=== PATIENT | female | born 1955 | race Caucasian/White ===

== ENCOUNTER 2022-04-16 05:54 | Day surgery (SDC) | payer MEDICARE, OTHER ==
[~2022-04-16] VITALS: Ht 175.3 cm; Wt 78.0 kg
[2022-04-16] VITALS (13 sets, daily range): BP systolic 121–166; BP diastolic 41–99
[2022-04-16] MEDS ORDERED: METO50TA16 PO (06:30)
[2022-04-16] MEDS ORDERED: COLE625T13 PO (06:30)
[2022-04-16] MEDS ORDERED: METF-1203 PO (06:30)
[2022-04-16] MEDS ORDERED: ATOR40TA72 PO (06:30)
[2022-04-16] MEDS ORDERED: normal saline 1,000 ML IV SCH (06:35)
[2022-04-16] MEDS ORDERED: diphenhydrAMINE 25mg capsule PO PRN (06:35)
[2022-04-16] MEDS ORDERED: sodium bicarbonate (8.4%) inj. 150 ML in dextrose 5%-water 1,000 ML IV ONE (06:35)
[2022-04-16] MEDS ORDERED: ASPIRIN PO (06:47)
[2022-04-16] MEDS ORDERED: IRON (06:47)
[2022-04-16] MEDS ORDERED: VITAMIN K (06:47)
[2022-04-16] MEDS ORDERED: FLAX (06:47)
[2022-04-16] MEDS ORDERED: CHOL100046 PO (06:47)
[2022-04-16] MEDS ORDERED: COD LIVER OIL (06:47)
[2022-04-16] MEDS ORDERED: CINN500C15 PO (06:47)
[2022-04-16 07:25] LABS: BASOPHILS % (AUTO) 0.3 % (0-1); EOSINOPHILS # (AUTO) 0.3 X10'3 (0-0.9); EOSINOPHILS % (AUTO) 5.4 % (0-6); HEMATOCRIT 34.9 % (35.0-45.0); HEMOGLOBIN 12.1 g/dl (12.0-16.0); LYMPHOCYTES # (AUTO) 1.5 X10'3 (1.1-4.8); LYMPHOCYTES % (AUTO) 24.7 % (21-51); MEAN CORPUSCULAR HEMOGLOBIN 28.9 PG (27.0-31.0); MEAN CORPUSCULAR HGB CONC 34.6 g/dL (33.0-36.5); MEAN CORPUSCULAR VOLUME 83.5 FL (78-98); MEAN PLATELET VOLUME 8.8 FL (7.4-10.4); MONOCYTES # (AUTO) 0.5 X10'3 (0-0.9); MONOCYTES % (AUTO) 8.1 % (2-12); NEUTROPHILS # (AUTO) 3.7 X10'3 (1.8-7.7); NEUTROPHILS % (AUTO) 61.5 % (42-75); PLATELET COUNT 157 X10'3 (140-440); RED BLOOD COUNT 4.18 X10'6 (4.20-5.60); RED CELL DISTRIBUTION WIDTH 13.4 % (11.5-14.5); WHITE BLOOD COUNT 5.9 X10'3 (4.5-11.0)
[2022-04-16] MEDS ORDERED: fentaNYL/PF 50MCG/1 ML 2ML syringe ONE (07:30)
[2022-04-16] MEDS ORDERED: midazolam 1 mg/ML 2ml injection ONE ×2 (07:30→07:54)
[2022-04-16] MEDS ORDERED: heparin 1,000unit/ml 10ml vial 10 ML ONE (07:31)
[2022-04-16] MEDS ORDERED: iohexol 350MG/ML 100ml bottle IV ONE ×2 (07:31→08:04)
[2022-04-16] MEDS ORDERED: LIDOcaine 1% 30ml preserv. free vial ONE (07:31)
[2022-04-16 07:35] LABS: ALBUMIN 3.7 G/DL (3.4-5.0); ANION GAP 13 (8-16); BLOOD UREA NITROGEN 10 MG/DL (7-18); BUN/CREATININE RATIO 12.8 (6.6-38.0); CALCIUM 8.3 MG/DL (8.5-10.1); CHLORIDE 103 MMOL/L (99-107); CREATININE 0.78 MG/DL (0.40-0.90); GLUCOSE 345 MG/DL (70-104); MAGNESIUM 1.2 MG/DL (1.5-2.4); POTASSIUM 4.2 MMOL/L (3.5-5.1); SODIUM 138 MMOL/L (135-145); TOTAL CARBON DIOXIDE 22.5 MMOL/L (24-32); eGFR 74 ML/MIN
[2022-04-16] MEDS ORDERED: normal saline 1000ml 1,000 ML IV SCH (08:45)
[2022-04-16] MEDS ORDERED: ondansetron/PF 4mg/2ml inj IV PRN (08:45)
[2022-04-16] MEDS ORDERED: ACETYLCYSTEINE 200 MG/1 ML 4 ML ORAL SOLUTION PO SCH (20:00)
== END 2022-04-16 12:30 | disposition home or self-care (01) ==
LOC: SSTAY O 05:54
PROVIDERS: ATTEND Internal Medicine Cardiovascular Disease
DX: R94.39 Abnormal result of other cardiovascular function study (principal); I25.118 Atherosclerotic heart disease of native coronary artery with other forms of angina pectoris; I10 Essential (primary) hypertension; E78.00 Pure hypercholesterolemia, unspecified; E11.9 Type 2 diabetes mellitus without complications; Z98.890 Other specified postprocedural states; Z82.49 Family history of ischemic heart disease and other diseases of the circulatory system; Z79.84 Long term (current) use of oral hypoglycemic drugs; Z79.82 Long term (current) use of aspirin; Z79.899 Other long term (current) drug therapy
CPT/HCPCS: 36415; 80048; 82948; 83735; 85025; 85610; 93005; 93459; 99152; 99153; C1760; C1769; C1894; J1644; J2250; J3010; J3490; J7030; Q0163; Q9967; A6258

== ENCOUNTER 2022-06-06 06:42 | Day surgery (SDC) | payer MEDICARE, OTHER ==
[~2022-06-06] VITALS: Ht 175.3 cm; Wt 77.6 kg
[2022-06-06] VITALS (9 sets, daily range): BP systolic 146–176; BP diastolic 69–89
[~2022-06-06 06:42] MED LIST: ASPIRIN PO; ATOR40TA72 PO; CHOL100046 PO; CINN500C15 PO; COD LIVER OIL; COLE625T13 PO; FLAX; IRON; METF-1203 PO; METO50TA16 PO; VITAMIN K
[2022-06-06] MEDS ORDERED: diphenhydrAMINE 25mg capsule PO PRN (07:05)
[2022-06-06] MEDS ORDERED: normal saline 1,000 ML IV SCH (07:05)
[2022-06-06 07:44] LABS: BASOPHILS % (AUTO) 0.3 % (0-1); EOSINOPHILS # (AUTO) 0.2 X10'3 (0-0.9); EOSINOPHILS % (AUTO) 3.9 % (0-6); HEMATOCRIT 34.6 % (35.0-45.0); HEMOGLOBIN 11.9 g/dl (12.0-16.0); LYMPHOCYTES # (AUTO) 1.7 X10'3 (1.1-4.8); LYMPHOCYTES % (AUTO) 35.4 % (21-51); MEAN CORPUSCULAR HEMOGLOBIN 28.7 PG (27.0-31.0); MEAN CORPUSCULAR HGB CONC 34.4 g/dL (33.0-36.5); MEAN CORPUSCULAR VOLUME 83.6 FL (78-98); MEAN PLATELET VOLUME 8.7 FL (7.4-10.4); MONOCYTES # (AUTO) 0.5 X10'3 (0-0.9); MONOCYTES % (AUTO) 9.6 % (2-12); NEUTROPHILS # (AUTO) 2.4 X10'3 (1.8-7.7); NEUTROPHILS % (AUTO) 50.8 % (42-75); PLATELET COUNT 174 X10'3 (140-440); RED BLOOD COUNT 4.14 X10'6 (4.20-5.60); RED CELL DISTRIBUTION WIDTH 13.6 % (11.5-14.5); WHITE BLOOD COUNT 4.7 X10'3 (4.5-11.0)
[2022-06-06] MEDS ORDERED: ISOS30TA84 PO (07:50)
[2022-06-06] MEDS ORDERED: MULT-227 PO (07:50)
[2022-06-06 07:53] LABS: ALBUMIN 4.2 G/DL (3.4-5.0); ANION GAP 11 (8-16); BLOOD UREA NITROGEN 11 MG/DL (7-18); BUN/CREATININE RATIO 14.5 (6.6-38.0); CHLORIDE 103 MMOL/L (99-107); CREATININE 0.76 MG/DL (0.40-0.90); GLUCOSE 340 MG/DL (70-104); SODIUM 137 MMOL/L (135-145); TOTAL CARBON DIOXIDE 22.6 MMOL/L (24-32); eGFR 76 ML/MIN
[2022-06-06 07:57] LABS: APTT 27 SECONDS (22-32)
[2022-06-06] MEDS ORDERED: fentaNYL/PF 50MCG/1 ML 2ML syringe ONE ×2 (08:54→09:45)
[2022-06-06] MEDS ORDERED: LIDOcaine 1% 30ml preserv. free vial ONE (08:54)
[2022-06-06] MEDS ORDERED: midazolam 1 mg/ML 2ml injection ONE ×3 (08:54→10:14)
[2022-06-06] MEDS ORDERED: iohexol 350MG/ML 100ml bottle IV ONE (08:55)
[2022-06-06] MEDS ORDERED: heparin 1,000unit/ml 10ml vial 10 ML ONE (08:55)
[2022-06-06] MEDS ORDERED: proCHLORperazine 10 MG/2 ml inj ONE (09:03)
[2022-06-06 09:06] LABS: MAGNESIUM 1.5 MG/DL (1.5-2.4)
[2022-06-06] MEDS ORDERED: clopidogrel 300mg tablet ONE ×2 (10:14→10:48)
[2022-06-06] MEDS ORDERED: normal saline 1000ml 1,000 ML IV SCH (11:40)
[2022-06-06] MEDS ORDERED: HYDROcodone/acetaminophen 5mg/325mg tablet PO PRN (11:40)
[2022-06-06] MEDS ORDERED: ondansetron/PF 4mg/2ml inj IV PRN (11:40)
[2022-06-06] MEDS ORDERED: OXAZEpam 15mg capsule PO PRN (11:40)
[2022-06-06] MEDS ORDERED: HYDROcodone/acetaminophen 10/325mg tab PO PRN (11:40)
[2022-06-06] MEDS ORDERED: proCHLORperazine 10 MG/2 ml inj IV PRN (11:45)
== END 2022-06-06 14:30 | disposition home or self-care (01) ==
LOC: SSTAY O 06:42
PROVIDERS: ATTEND Internal Medicine Cardiovascular Disease
DX: I70.211 Atherosclerosis of native arteries of extremities with intermittent claudication, right leg (principal); Z79.01 Long term (current) use of anticoagulants; Z79.899 Other long term (current) drug therapy; I25.10 Atherosclerotic heart disease of native coronary artery without angina pectoris; E11.9 Type 2 diabetes mellitus without complications; Z98.890 Other specified postprocedural states; I10 Essential (primary) hypertension; E78.00 Pure hypercholesterolemia, unspecified; Z95.5 Presence of coronary angioplasty implant and graft; Z82.49 Family history of ischemic heart disease and other diseases of the circulatory system; Z72.89 Other problems related to lifestyle
CPT/HCPCS: 36415; 37226; 80048; 83735; 85025; 85610; 85730; 93005; 99152; 99153; C1725; C1760; C1769; C1876; C1894; C2623; J0780; J1644; J2250; J3010; J3490; J7030; Q0163; Q9967; A4620; A6258; A6402

== ENCOUNTER 2023-11-02 07:52 | Day surgery (SDC) | payer MEDICARE, OTHER ==
[2023-11-02] VITALS (10 sets, daily range): BP systolic 136–155; BP diastolic 65–86; PULSE 78–94; RESP 14–20; TEMP 98.2; O2SAT 93–97
[~2023-11-02] VITALS: Ht 175.3 cm; Wt 75.8 kg
[~2023-11-02 07:52] MED LIST changes: +ISOS30TA84 PO; +MULT-227 PO
[2023-11-02] MEDS ORDERED: diphenhydrAMINE 25mg capsule PO PRN (08:15)
[2023-11-02] MEDS ORDERED: sodium bicarbonate 1meq/ml syr 150 ML in dextrose 5%-water 1,000 ML IV SCH (08:15)
[2023-11-02] MEDS ORDERED: normal saline 1,000 ML IV SCH (08:15)
[2023-11-02] MEDS ORDERED: METO50TA16 PO (08:58)
[2023-11-02] MEDS ORDERED: ROSU20TA73 PO (08:58)
[2023-11-02] MEDS ORDERED: ASPI-1071 PO (08:58)
[2023-11-02] MEDS ORDERED: DAPA10TA PO (09:00)
[2023-11-02] MEDS ORDERED: CLOP75TA34 PO (09:03)
[2023-11-02] MEDS ORDERED: GEMF600T90 PO (09:03)
[2023-11-02] MEDS ORDERED: OMEP20TA23 PO (09:05)
[2023-11-02 09:24] LABS: BASOPHILS % (AUTO) 0.4 % (0-1); EOSINOPHILS # (AUTO) 0.9 X10'3 (0-0.9); EOSINOPHILS % (AUTO) 11.6 % (0-6); HEMATOCRIT 41.1 % (35.0-45.0); HEMOGLOBIN 14.2 g/dl (12.0-16.0); LYMPHOCYTES # (AUTO) 2.3 X10'3 (1.1-4.8); LYMPHOCYTES % (AUTO) 28.9 % (21-51); MEAN CORPUSCULAR HEMOGLOBIN 28.2 PG (27.0-31.0); MEAN CORPUSCULAR HGB CONC 34.5 g/dL (33.0-36.5); MEAN CORPUSCULAR VOLUME 81.7 FL (78-98); MEAN PLATELET VOLUME 8.7 FL (7.4-10.4); MONOCYTES # (AUTO) 0.6 X10'3 (0-0.9); MONOCYTES % (AUTO) 7.6 % (2-12); NEUTROPHILS # (AUTO) 4.1 X10'3 (1.8-7.7); NEUTROPHILS % (AUTO) 51.5 % (42-75); PLATELET COUNT 171 X10'3 (140-440); RED BLOOD COUNT 5.02 X10'6 (4.20-5.60); RED CELL DISTRIBUTION WIDTH 14.6 % (11.5-14.5)
[2023-11-02 09:32] LABS: ALBUMIN 3.8 G/DL (3.4-5.0); ANION GAP 12 (8-16); BLOOD UREA NITROGEN 9 MG/DL (7-18); CALCIUM 7.7 MG/DL (8.5-10.1); CHLORIDE 100 MMOL/L (99-107); CREATININE 0.69 MG/DL (0.40-0.90); GLUCOSE 267 MG/DL (70-104); MAGNESIUM 1.8 MG/DL (1.5-2.4); POTASSIUM 4.2 MMOL/L (3.5-5.1); SODIUM 136 MMOL/L (135-145); TOTAL CARBON DIOXIDE 23.8 MMOL/L (24-32); eCRCL 82 ML/MIN; eGFR 85 ML/MIN
[2023-11-02 09:33] LABS: PROTHROMBIN TIME 11.1 SECONDS (9.0-12.0)
[2023-11-02] MEDS ORDERED: midazolam 1 mg/ML 2ml injection ONE ×2 (11:41→13:02)
[2023-11-02] MEDS ORDERED: iohexol 350 MG/ML 50ML vial IV ONE (11:41)
[2023-11-02] MEDS ORDERED: fentaNYL/PF 50MCG/1 ML 2ML syringe ONE (11:41)
[2023-11-02] MEDS ORDERED: heparin 1,000 UNITS/NS 500ml 500 ML ONE ×2 (11:41→13:46)
[2023-11-02] MEDS ORDERED: heparin 1,000unit/ml 10ml vial 10 ML ONE (11:41)
[2023-11-02] MEDS ORDERED: iohexol 350MG/ML 100ml bottle IV ONE ×3 (11:41→13:00)
[2023-11-02] MEDS ORDERED: LIDOcaine 1% (10mg/ml) 2ml vial ONE (11:41)
[2023-11-02] MEDS ORDERED: verapamil 2.5 mg/ml inj IV ONE (11:41)
[2023-11-02] MEDS ORDERED: nitroGLYCERIN 500mcg/5mL D5W 5 ML IV ONE (11:42)
[2023-11-02] MEDS ORDERED: insulin Lispro (HumaLOG) vial - multi-dose SQ SCH (11:50)
[2023-11-02] MEDS ORDERED: LIDOcaine 1% 30ml preserv. free vial ONE (13:10)
[2023-11-02] MEDS ORDERED: clopidogrel 300mg tablet ONE (14:00)
[2023-11-02] MEDS ORDERED: HYDROcodone/acetaminophen 5mg/325mg tablet PO PRN (14:30)
[2023-11-02] MEDS ORDERED: proCHLORperazine 10 MG/2 ml inj IV PRN (14:30)
[2023-11-02] MEDS ORDERED: ondansetron/PF 4mg/2ml inj IV PRN (14:30)
[2023-11-02] MEDS ORDERED: HYDROcodone/acetaminophen 10/325mg tab PO PRN (14:30)
== END 2023-11-02 17:45 | disposition home or self-care (01) ==
LOC: SSTAY O 07:52
PROVIDERS: ATTEND Internal Medicine Cardiovascular Disease
DX: I25.810 Atherosclerosis of coronary artery bypass graft(s) without angina pectoris (principal); I10 Essential (primary) hypertension; I73.9 Peripheral vascular disease, unspecified; E11.9 Type 2 diabetes mellitus without complications; E78.00 Pure hypercholesterolemia, unspecified; Z79.899 Other long term (current) drug therapy; Z79.01 Long term (current) use of anticoagulants; Z88.8 Allergy status to other drugs, medicaments and biological substances; Z72.89 Other problems related to lifestyle; Z87.891 Personal history of nicotine dependence; Z82.49 Family history of ischemic heart disease and other diseases of the circulatory system
CPT/HCPCS: 36415; 80048; 82948; 83735; 85025; 85610; 93005; 99152; 99153; C1874; C9604; J1644; J1815; J2250; J3010; J3490; J7030; J7070; Q0163; Q9967; A6258; A6402; A6449; C1725; C1751; C1760; C1769; C1894; C9600